=== PATIENT | female | born 1990 | race Caucasian/White ===

== ENCOUNTER 2017-07-31 14:15 | Emergency (ER) | payer MEDICAID, OTHER ==
[~2017-07-31] VITALS: Ht 165.1 cm; Wt 60.0 kg
[2017-07-31 14:17] VITALS: BP 140/96
== END 2017-07-31 17:28 | disposition left against medical advice (07) ==
LOC: ER 14:23
DX: R10.30 Lower abdominal pain, unspecified (principal); Z53.21 Procedure and treatment not carried out due to patient leaving prior to being seen by health care provider